=== PATIENT | male | born 1975 | race African-American/Black ===

== ENCOUNTER 2018-06-03 22:40 | Emergency (ER) | payer OTHER ==
[2018-06-03 22:52] VITALS: BP 134/91; PULSE 81; TEMP 98.4; BMI 40.6
--- NOTE | 2018-06-04 00:28 | PDOC ---
History of Present Illness - General Chief Complaint: Hemorrhoids Stated Complaint: HEMORROID Time Seen by Provider: 06/04/18 00:10 History Source: Patient Exam Limitations: No Limitations - History of Present Illness Travel History: No Timing/Duration: reports: changing over time Quality: reports: mild Pain Radiation: reports: no radiation (rectal hemorroids) Past History - Past Medical History Allergies/Adverse Reactions: Allergies Allergy/AdvReac Type Severity Reaction Status Date / Time No Known Allergies Allergy Verified 06/03/18 22:53 Home Medications: Ambulatory Orders Methocarbamol [Robaxin -] 1,500 mg PO Q8H PRN #20 tablet 10/23/15 Naproxen [Naprosyn -] 500 mg PO BID #20 tablet 10/23/15 Hydrocortisone Acetate [Anusol Hc Suppository -] 25 mg RC DAILY PRN #7 supp.rect 06/04/18 Witch Nina 50% (Tucks) [Tucks Pads -] 40 pad TP DAILY PRN #40 pad 06/04/18 COPD: No Diabetes: Yes - Suicide/Smoking/Psychosocial Hx Smoking History: Never smoked Have you smoked in the past 12 months: No Information on smoking cessation initiated: No Hx Alcohol Use: No Drug/Substance Use Hx: No Substance Use Type: None Review of Systems - Review of Systems Able to Perform ROS?: Yes Is the patient limited Welsh proficient: No Constitutional: No: Symptoms Reported, See HPI, Chills, Diaphoresis, Fever, Loss of Appetite, Malaise, Night Sweats, Weakness, Weight Stable, Unintentional Wgt. Loss, Unexplained wgt Loss, Other HEENTM: No: Symptoms Reported, See HPI, Eye Pain, Blurred Vision, Tearing, Recent change in vision, Double Vision, Cataracts, Ear Pain, Ocular Prothesis, Ear Discharge, Nose Pain, Nose Congestion, Tinnitus, Nose Bleeding, Hearing Loss , Throat Pain, Throat Swelling, Mouth Pain, Dental Problems, Difficulty Swallowing, Mouth Swelling, Other Respiratory: No: Symptoms reported, See HPI, Cough, Orthopnea, Shortness of Breath, SOB with Exertion, SOB at Rest, Stridor, Wheezing, Productive cough, Hemoptysis, Other Cardiac (ROS): No: Symptoms Reported, See HPI, Chest Pain, Edema, Irregular Heart Rate, Lightheadedness, Palpitations, Syncope, Chest Tightness, Other ABD/GI: Yes: Other (external hemorrhoids) Musculoskeletal: No: Symptoms Reported, See HPI, Back Pain, Gout, Joint Pain, Joint Swelling, Muscle Pain, Muscle Weakness, Neck Pain, Joint Stiffness, Other Integumentary: No: Symptoms Reported, See HPI, Bruising, Change in Color, Change in Hair/Nails, Dryness, Erythema, Flushing, Lesions, Lumps, Pallor, Pruritus, Rash, Sweating, Other *Physical Exam - Vital Signs Last Vital Signs Temp Pulse Resp BP Pulse Ox 98.4 F 81 17 134/91 100 06/03/18 22:49 06/03/18 22:49 06/03/18 22:49 06/03/18 22:49 06/03/18 22:49 - Physical Exam General Appearance: Yes: Obese HEENT: positive: Normal Voice Neck: positive: Supple Respiratory/Chest: positive: Lungs Clear Cardiovascular: positive: Regular Rhythm, Regular Rate Gastrointestinal/Abdominal: positive: Protuberent Male Genitalia: positive: normal genitalia Rectal Exam: positive: hemorrhoids Musculoskeletal: positive: Normal Inspection Extremity: positive: Normal Inspection, Normal Range of Motion Integumentary: positive: Normal Color, Warm Neurologic: positive: Fully Oriented, Alert, Motor Strength 5/5 Moderate Sedation - Procedure Monitoring Vital Signs: Procedure Monitoring Vital Signs Temperature 98.4 F 06/03/18 22:49 Pulse Rate 81 06/03/18 22:49 Respiratory Rate 17 06/03/18 22:49 Blood Pressure 134/91 06/03/18 22:49 O2 Sat by Pulse Oximetry (%) 100 06/03/18 22:49 *DC/Admit/Observation/Transfer Diagnosis at time of Disposition: External hemorrhoid - Discharge Dispostion Disposition: HOME Condition at time of disposition: Stable - Referrals - Patient Instructions Printed Discharge Instructions: DI for Hemorrhoids Additional Instructions: please picker and packer your medications [email or web address] Avjordan - Post Discharge Activity
== END 2018-06-04 00:39 | disposition home or self-care (01) ==
LOC: JER 22:40
DX: K64.4 Residual hemorrhoidal skin tags (principal); E11.9 Type 2 diabetes mellitus without complications
CPT/HCPCS: 99282-25

== ENCOUNTER 2020-12-22 10:05 | Emergency (ER) | payer OTHER ==
[2020-12-22 10:28] VITALS: TEMP 98.1; BMI 26.6
[2020-12-22] MEDS ORDERED: SODIUM CHLORIDE 1,000 ML IV STA ×2 (11:03→14:54)
[2020-12-22] MEDS ORDERED: ONDANSETRON 4 MG/2 ML VIAL IVPUSH ONE (11:03)
[2020-12-22] MEDS ORDERED: PANTOPRAZOLE SODIUM 40 MG VIAL IVPUSH ONE (11:46)
[2020-12-22] MEDS ORDERED: ONDANSETRON 4 MG/2 ML VIAL ONE (11:49)
[2020-12-22 12:34] LABS: BASO % 0.5 % (0-2.0); HEMATOCRIT 52.8 % (35.4-49); HEMOGLOBIN 16.9 GM/dL (11.7-16.9); MCH 24.9 pg (25.7-33.7); MEAN CELL VOLUME 77.9 fl (80-96); MEAN PLT VOLUME 10.3 fl (7.5-11.1); MONO % 7.8 % (3.8-10.2); NEUT % 65.7 % (42.8-82.8); PLATELET COUNT 294 10^3/uL (134-434); RBC 6.78 M/mm3 (4.00-5.60); RDW 13.8 % (11.9-15.9); WHITE BLOOD COUNT 11.7 K/mm3 (4.0-10.0)
[2020-12-22 12:57] LABS: ALBUMIN 4.4 g/dl (3.4-5.0); BLOOD UREA NITROGEN 25.5 mg/dL (7-18); CALCIUM 10.9 mg/dL (8.5-10.1); MAGNESIUM 2.3 mg/dL (1.8-2.4)
[2020-12-22] MEDS ORDERED: PANTOPRAZOLE SODIUM 40 MG/100 ML BAG IVPB ONE (12:59)
[2020-12-22 13:00] LABS: CREATININE 1.5 mg/dL (0.55-1.3)
[2020-12-22 13:02] LABS: BILIRUBIN,TOTAL 1.1 mg/dL (0.2-1); TOT PROT 8.2 g/dl (6.4-8.2)
[2020-12-22 17:42] LABS: BLOOD UREA NITROGEN 21.6 mg/dL (7-18)
[2020-12-22 17:45] LABS: CALCIUM 9.2 mg/dL (8.5-10.1); CREATININE 1.3 mg/dL (0.55-1.3)
[2020-12-22 19:18] VITALS: BP 124/64; PULSE 79
== END 2020-12-22 19:18 | disposition home or self-care (01) ==
LOC: JER 10:05
PROC: 3E033NZ Introduction of Analgesics, Hypnotics, Sedatives into Peripheral Vein, Percutaneous Approach (ICD-10-PCS; principal; 2020-12-22)
PROC: 3E033GC Introduction of Other Therapeutic Substance into Peripheral Vein, Percutaneous Approach (ICD-10-PCS; 2020-12-22)
PROC: 3E0337Z Introduction of Electrolytic and Water Balance Substance into Peripheral Vein, Percutaneous Approach (ICD-10-PCS; 2020-12-22)
DX: R11.2 Nausea with vomiting, unspecified (principal); E11.9 Type 2 diabetes mellitus without complications
CPT/HCPCS: 36415; 80048; 80053; 83690; 83735; 85025; 99284-25

== ENCOUNTER 2020-12-23 02:01 | Observation (INO) | payer OTHER ==
[2020-12-23] MEDS ORDERED: ONDANSETRON 4 MG/2 ML VIAL IVPUSH ONE (03:46)
[2020-12-23] MEDS ORDERED: SODIUM CHLORIDE 0.9% 500 ML INFUS.BAG IV ONE (03:47)
[2020-12-23] MEDS ORDERED: ACETAMINOPHEN 1000 MG/100 ML VIAL (NON FORMULARY) IVPB ONE (03:47)
[2020-12-23] MEDS ORDERED: FAMOTIDINE 20 MG/50 ML IVPB 20 MG/50 ML MG IVPB ONE ×2 (03:47→03:50)
[2020-12-23] MEDS ORDERED: ONDANSETRON 4 MG/2 ML VIAL ONE (03:50)
[2020-12-23 04:25] LABS: BASO % 1.1 % (0-2.0); EOS % 0.1 % (0-4.5); HEMATOCRIT 47.1 % (35.4-49); HEMOGLOBIN 15.3 GM/dL (11.7-16.9); MCH 25.5 pg (25.7-33.7); MCHC 32.5 g/dl (32.0-35.9); MEAN CELL VOLUME 78.4 fl (80-96); MEAN PLT VOLUME 9.3 fl (7.5-11.1); MONO % 7.5 % (3.8-10.2); NEUT % 58.3 % (42.8-82.8); PLATELET COUNT 257 10^3/uL (134-434); RBC 6.01 M/mm3 (4.00-5.60); RDW 13.9 % (11.9-15.9); WHITE BLOOD COUNT 9.5 K/mm3 (4.0-10.0)
[2020-12-23 04:40] LABS: CALCIUM 9.4 mg/dL (8.5-10.1)
[2020-12-23 04:41] LABS: ALBUMIN 3.8 g/dl (3.4-5.0); BLOOD UREA NITROGEN 19.5 mg/dL (7-18)
[2020-12-23 04:45] LABS: BILIRUBIN,TOTAL 0.9 mg/dL (0.2-1); CREATININE 1.2 mg/dL (0.55-1.3); TOT PROT 7.2 g/dl (6.4-8.2)
[2020-12-23 04:50] LABS: URINE APPEARANCE CLEAR; URINE BILIRUBIN NEGATIVE (NEGATIVE); URINE COLOR YELLOW; URINE GLUCOSE (UA) 3+ (NEGATIVE); URINE KETONE 4+ (NEGATIVE); URINE LEUK ESTERASE NEGATIVE (NEGATIVE); URINE NITRITE NEGATIVE (NEGATIVE); URINE PROTEIN TRACE (NEGATIVE)
[2020-12-23] MEDS ORDERED: IBUPROFEN 400 MG TABLET (FP) PO ONE (05:13)
[2020-12-23] MEDS ORDERED: METOCLOPRAMIDE HCL INJECTION 10 MG/2 ML VIAL ONE (06:07)
[2020-12-23] MEDS ORDERED: METOCLOPRAMIDE HCL INJECTION 10 MG/2 ML VIAL IVPUSH ONE ×2 (06:14→10:39)
[2020-12-23] MEDS: SODIUM CHLORIDE 1,000 ML IV SCH (08:30)
[2020-12-23] MEDS ORDERED: ENOXAPARIN NA (PORCINE) 40 MG/0.4 ML DISP.SYRIN SQ ONE (09:10)
[2020-12-23] MEDS: INSULIN SLIDING SCALE (NOVOLOG) 1 VIAL SQ SCH ×4 (09:19→21:43)
[2020-12-23] MEDS: ENOXAPARIN NA (PORCINE) 40 MG/0.4 ML DISP.SYRIN SQ SCH (09:19)
[2020-12-23] MEDS ORDERED: SODIUM CHLORIDE 1,000 ML IV STA (09:53)
[2020-12-23 10:29] LABS: CALCIUM 9.4 mg/dL (8.5-10.1)
[2020-12-23 10:31] LABS: BLOOD UREA NITROGEN 18.2 mg/dL (7-18)
[2020-12-23 10:33] LABS: CREATININE 1.2 mg/dL (0.55-1.3)
[2020-12-23 15:11] VITALS: BMI 27.0
[2020-12-23] MEDS: METOCLOPRAMIDE HCL INJECTION 10 MG/2 ML VIAL IVPUSH PRN (19:37)
[2020-12-23] MEDS ORDERED: INSULIN (NOVOLOG) ASPART 100 UNITS/ML 10ML VIAL ONE (21:25)
[2020-12-24] MEDS ORDERED: ACETAMINOPHEN 325 MG TABLET (FP) PO ONE (01:50)
[2020-12-24] MEDS: METOCLOPRAMIDE HCL INJECTION 10 MG/2 ML VIAL IVPUSH PRN ×2 (05:18→20:06)
[2020-12-24] MEDS: INSULIN SLIDING SCALE (NOVOLOG) 1 VIAL SQ SCH ×4 (06:08→22:57)
[2020-12-24] MEDS: ENOXAPARIN NA (PORCINE) 40 MG/0.4 ML DISP.SYRIN SQ SCH (09:26)
[2020-12-24] MEDS: ACETAMINOPHEN 325 MG TABLET (FP) PO PRN ×2 (09:41→20:06)
[2020-12-24 10:11] LABS: HEMATOCRIT 43.6 % (35.4-49); HEMOGLOBIN 13.6 GM/dL (11.7-16.9); MCHC 31.3 g/dl (32.0-35.9); MEAN CELL VOLUME 79.8 fl (80-96); PLATELET COUNT 242 10^3/uL (134-434); RBC 5.46 M/mm3 (4.00-5.60); RDW 13.6 % (11.9-15.9); WHITE BLOOD COUNT 6.3 K/mm3 (4.0-10.0)
[2020-12-24 10:27] LABS: CALCIUM 8.6 mg/dL (8.5-10.1)
[2020-12-24 10:28] LABS: ALBUMIN 3.1 g/dl (3.4-5.0); BLOOD UREA NITROGEN 10.8 mg/dL (7-18); MAGNESIUM 2.2 mg/dL (1.8-2.4)
[2020-12-24 10:31] LABS: PHOSPHOROUS 1.7 mg/dL (2.5-4.9)
[2020-12-24 10:32] LABS: BILIRUBIN,TOTAL 0.9 mg/dL (0.2-1); TOT PROT 5.9 g/dl (6.4-8.2)
[2020-12-24] MEDS ORDERED: INSULIN (NOVOLOG) ASPART 100 UNITS/ML 10ML VIAL ONE (11:53)
[2020-12-24] MEDS: SODIUM CHLORIDE 1,000 ML IV SCH ×3 (12:00→23:15)
[2020-12-24] MEDS ORDERED: MAG HYDROX/AL HYDROX/SIMETH 30 ML UNIT-DOSE CUP PO ONE (14:07)
[2020-12-24] MEDS ORDERED: FAMOTIDINE 10 MG TABLET PO ONE (14:07)
[2020-12-25] MEDS: ACETAMINOPHEN 325 MG TABLET (FP) PO PRN ×2 (01:05→05:31)
[2020-12-25] MEDS: METOCLOPRAMIDE HCL INJECTION 10 MG/2 ML VIAL IVPUSH PRN ×2 (04:26→12:01)
[2020-12-25] MEDS: INSULIN SLIDING SCALE (NOVOLOG) 1 VIAL SQ SCH ×2 (06:01→12:01)
[2020-12-25] MEDS: SODIUM CHLORIDE 1,000 ML IV SCH ×2 (06:12→09:15)
[2020-12-25 08:54] LABS: HEMOGLOBIN 13.7 GM/dL (11.7-16.9); MCH 25.5 pg (25.7-33.7); MCHC 32.6 g/dl (32.0-35.9); MEAN CELL VOLUME 78.3 fl (80-96); MEAN PLT VOLUME 9.1 fl (7.5-11.1); PLATELET COUNT 224 10^3/uL (134-434); RBC 5.36 M/mm3 (4.00-5.60); RDW 13.4 % (11.9-15.9)
[2020-12-25 09:13] LABS: ALBUMIN 3.2 g/dl (3.4-5.0); BLOOD UREA NITROGEN 8.1 mg/dL (7-18); CALCIUM 8.9 mg/dL (8.5-10.1); MAGNESIUM 2.1 mg/dL (1.8-2.4)
[2020-12-25 09:16] LABS: PHOSPHOROUS 1.7 mg/dL (2.5-4.9)
[2020-12-25 09:25] LABS: BILIRUBIN,TOTAL 0.9 mg/dL (0.2-1)
[2020-12-25] MEDS ORDERED: PT OWN MED DRAWER 7, Y5N ONE (10:19)
[2020-12-25] MEDS ORDERED: NAPH,MB-DB/K PH,MBDB POWDER PACKET PO ONE (10:41)
[2020-12-25] MEDS: ENOXAPARIN NA (PORCINE) 40 MG/0.4 ML DISP.SYRIN SQ SCH (11:16)
[2020-12-25] MEDS ORDERED: ONDANSETRON 4 MG TABLET PO PRN (12:17)
[2020-12-25 15:26] VITALS: BP 132/68; PULSE 72; TEMP 98.1
== END 2020-12-25 16:47 | disposition home or self-care (01) ==
LOC: JER 02:01 → JERBED 06:43 → UNDOADMOB 06:43 → INTOOBSV 06:43 → J8W 14:37 → JERBED 14:37 → J8W 12-24 08:20 → JERBED 12-24 08:20
PROVIDERS: ATTEND Internal Medicine
PROC: 3E023GC Introduction of Other Therapeutic Substance into Muscle, Percutaneous Approach (ICD-10-PCS; principal; 2020-12-24)
PROC: 3E013VG Introduction of Insulin into Subcutaneous Tissue, Percutaneous Approach (ICD-10-PCS; 2020-12-24)
PROC: 3E033GC Introduction of Other Therapeutic Substance into Peripheral Vein, Percutaneous Approach (ICD-10-PCS; 2020-12-24)
DX: R11.10 Vomiting, unspecified (principal); E11.65 Type 2 diabetes mellitus with hyperglycemia; Z79.84 Long term (current) use of oral hypoglycemic drugs; I10 Essential (primary) hypertension; E78.5 Hyperlipidemia, unspecified; Z29.8 Encounter for other specified prophylactic measures
CPT/HCPCS: 36415; 71046-TC-FY; 80048; 80053; 81003; 82010; 82962; 83036; 83735; 84100; 84479; 85025; 85027; 87086; 93005; 93010; 96361; 96365; 96372; 96375; 96376; 99285-25; C9803; G0378; J0131; U0003; U0005